=== PATIENT | female | born 1965 | race Caucasian/White ===

== ENCOUNTER → 2018-03-08 | Outpatient (CLI) | payer OTHER ==
[~2018-03-08] MED LIST: DIFLUCAN150 MG PO; EES400 MG PO; LISINOPRIL/HCTZ1 TA3 PO
== END | disposition home or self-care (01) ==
LOC: MAMMO 08:07
DX: Z12.31 Encounter for screening mammogram for malignant neoplasm of breast (principal)

== ENCOUNTER → 2019-10-18 | Outpatient (CLI) | payer OTHER ==
[~2019-10-18] MED LIST changes: +VITAMIN D350 MC1 PO
== END | disposition home or self-care (01) ==
LOC: COVID19 08:02
DX: U07.1 COVID-19 (principal)

== ENCOUNTER 2019-10-23 14:35 | Inpatient (IN) | payer OTHER ==
[~2019-10-23] VITALS: Ht 170.1 cm; Wt 111.3 kg
[2019-10-23 03:32] VITALS: BP 100/61
[~2019-10-23 14:35] MED LIST changes: -VITAMIN D350 MC1 PO
[2019-10-23 14:36] VITALS: BP 92/46; BP 922/46
[2019-10-23 15:06] VITALS: BP 86/0; BP 96/0
[2019-10-23 15:32] LABS: HEMATOCRIT 45.2 % (37.0-47.0); LYMPH # 0.5 10*3/uL (1.3-4.4); LYMPH % 16.6 % (27.0-41.0); MEAN CORPUSCULAR HGB 27.7 pg (27.0-31.0); MEAN PLATELET VOLUME 10.7 fl (9.6-12.3); MONO # 0.2 10*3/uL (0.1-1.0); MONO % 6.9 % (3.0-9.0); NEUT # 2.2 10*3/uL (2.3-7.9); NEUT % 76.2 % (47.0-73.0); PLATELET COUNT AUTOMATED 169 10*3/uL (130-400); RED BLOOD COUNT 5.38 10*6/uL (4.10-5.10); RED CELL DISTRI WIDTH 13.4 % (0-14.5); WHITE BLOOD COUNT 2.9 10*3/uL (4.8-10.8)
[2019-10-23 15:48] LABS: ALBUMIN 3.1 gm/dl (3.1-4.5); ALKALINE PHOSPHATASE 74 U/L (45-117); BUN 18 mg/dl (7-24); CHLORIDE 101 mmol/L (98-107); CREATININE 1.15 mg/dL (0.55-1.02); POTASSIUM 3.9 mmol/L (3.5-5.1); SGOT/AST 53 IU/L (3-35); SGPT/ALT 47 U/L (12-78); SODIUM 135 mmol/L (136-145); TOTAL PROTEIN 7.9 gm/dL (6.4-8.2)
[2019-10-23 18:35] VITALS: BP 92/44
[2019-10-23] MEDS ORDERED: VITAMIN D350 MC1 PO (21:18)
[2019-10-23 21:20] VITALS: BP 111/60
[2019-10-23 22:30] VITALS: BP 112/72
[2019-10-24] VITALS (10 sets, daily range): BP systolic 68–120; BP diastolic 36–71
[2019-10-24 06:52] LABS: INTERNATIONAL NORM RATIO 0.9 (2.0-3.5)
[2019-10-24 06:56] LABS: HEMATOCRIT 40.8 % (37.0-47.0); LYMPH # 0.7 10*3/uL (1.3-4.4); LYMPH % 25.4 % (27.0-41.0); MEAN CELL VOLUME 84.5 fl (81.0-99.0); MEAN CORPUSCULAR HGB 27.7 pg (27.0-31.0); MEAN CORPUSCULAR HGB CONC 32.8 g/dl (33.0-37.0); MEAN PLATELET VOLUME 10.3 fl (9.6-12.3); MONO # 0.2 10*3/uL (0.1-1.0); MONO % 7.7 % (3.0-9.0); NEUT # 1.7 10*3/uL (2.3-7.9); NEUT % 66.5 % (47.0-73.0); PLATELET COUNT AUTOMATED 157 10*3/uL (130-400); RED BLOOD COUNT 4.83 10*6/uL (4.10-5.10); RED CELL DISTRI WIDTH 13.5 % (0-14.5); WHITE BLOOD COUNT 2.6 10*3/uL (4.8-10.8)
[2019-10-24 07:08] LABS: ALBUMIN 2.6 gm/dl (3.1-4.5); BUN 14 mg/dl (7-24); CHLORIDE 105 mmol/L (98-107); CHOLESTEROL 112 mg/dL (<200); CREATININE 0.95 mg/dL (0.55-1.02); HDL CHOLESTEROL 21 mg/dl (40-60); LDL CHOLESTEROL 62 mg/dL (9-159); POTASSIUM 3.7 mmol/L (3.5-5.1); SGOT/AST 46 IU/L (3-35); SGPT/ALT 43 U/L (12-78); SODIUM 137 mmol/L (136-145); TOTAL PROTEIN 6.8 gm/dL (6.4-8.2); TRIGLYCERIDES 144 mg/dl (<150); VLDL CHOLESTEROL 29 mg/dL (6-40)
[2019-10-24 07:14] LABS: ALKALINE PHOSPHATASE 62 U/L (45-117)
[2019-10-24 10:30] LABS: ABG BASE EXCESS 0.4 mmol/L (-2.0-2.0); ARTERIAL BLOOD GAS PH 7.45 (7.35-7.45)
[2019-10-24 11:51] LABS: ACT PARTIAL THROMBO TIME 31.7 SECONDS (20.0-32.1)
[2019-10-24 16:53] LABS: ABG BASE EXCESS 0.8 mmol/L (-2.0-2.0); ARTERIAL BLOOD GAS PH 7.425 (7.35-7.45)
[2019-10-25 04:00] VITALS: BP 103/40
[2019-10-25 06:18] LABS: HEMATOCRIT 42.6 % (37.0-47.0); LYMPH # 0.6 10*3/uL (1.3-4.4); LYMPH % 17.4 % (27.0-41.0); MEAN CORPUSCULAR HGB 27.3 pg (27.0-31.0); MEAN CORPUSCULAR HGB CONC 32.2 g/dl (33.0-37.0); MEAN PLATELET VOLUME 10.9 fl (9.6-12.3); MONO # 0.2 10*3/uL (0.1-1.0); MONO % 7.2 % (3.0-9.0); NEUT # 2.4 10*3/uL (2.3-7.9); NEUT % 75.1 % (47.0-73.0); PLATELET COUNT AUTOMATED 171 10*3/uL (130-400); RED BLOOD COUNT 5.01 10*6/uL (4.10-5.10); RED CELL DISTRI WIDTH 13.2 % (0-14.5); WHITE BLOOD COUNT 3.2 10*3/uL (4.8-10.8)
[2019-10-25 06:30] LABS: ALBUMIN 2.7 gm/dl (3.1-4.5); BUN 16 mg/dl (7-24); CHLORIDE 106 mmol/L (98-107); CREATININE 0.86 mg/dL (0.55-1.02); SGOT/AST 43 IU/L (3-35); SGPT/ALT 45 U/L (12-78); SODIUM 139 mmol/L (136-145)
[2019-10-25 06:32] LABS: ALKALINE PHOSPHATASE 63 U/L (45-117); TOTAL PROTEIN 7.2 gm/dL (6.4-8.2)
[2019-10-25 07:21] LABS: ABG BASE EXCESS 1.7 mmol/L (-2.0-2.0)
[2019-10-25 07:22] LABS: ARTERIAL BLOOD GAS PH 7.442 (7.35-7.45)
[2019-10-25 08:00] VITALS: BP 107/50
[2019-10-25 12:00] VITALS: BP 113/53
[2019-10-25 14:28] LABS: BILIRUBIN NEGATIVE (NEGATIVE); BLOOD NEGATIVE (NEGATIVE); CLARITY CLEAR (CLEAR); COLOR YELLOW (YELLOW); GLUCOSE NEGATIVE (NEGATIVE); KETONE NEGATIVE (NEGATIVE); LEUKO ESTERASE TRACE (NEGATIVE); NITRITE NEGATIVE (NEGATIVE); SPECIFIC GRAVITY 1.025 (1.005-1.030); UROBILINOGEN 0.2 E.U./dl (0.2-1.0)
[2019-10-25 14:29] LABS: BACTERIA 1+; MUCOUS TRACE
[2019-10-25 16:00] VITALS: BP 113/53
[2019-10-25 20:00] VITALS: BP 118/58
[2019-10-25 23:44] VITALS: BP 136/58; BP 136/98
[2019-10-26 04:00] VITALS: BP 130/54
[2019-10-26 06:38] LABS: BASO % 0.2 % (0.0-1.0); LYMPH # 0.9 10*3/uL (1.3-4.4); LYMPH % 18.9 % (27.0-41.0); MEAN CELL VOLUME 86.3 fl (81.0-99.0); MEAN CORPUSCULAR HGB 27.5 pg (27.0-31.0); MEAN CORPUSCULAR HGB CONC 31.9 g/dl (33.0-37.0); MEAN PLATELET VOLUME 10.9 fl (9.6-12.3); MONO # 0.3 10*3/uL (0.1-1.0); MONO % 6.6 % (3.0-9.0); NEUT # 3.6 10*3/uL (2.3-7.9); NEUT % 73.9 % (47.0-73.0); PLATELET COUNT AUTOMATED 222 10*3/uL (130-400); RED BLOOD COUNT 4.98 10*6/uL (4.10-5.10); RED CELL DISTRI WIDTH 13.2 % (0-14.5); WHITE BLOOD COUNT 4.9 10*3/uL (4.8-10.8)
[2019-10-26 06:44] LABS: ALBUMIN 2.9 gm/dl (3.1-4.5); ALKALINE PHOSPHATASE 68 U/L (45-117); BUN 18 mg/dl (7-24); CHLORIDE 108 mmol/L (98-107); CREATININE 0.96 mg/dL (0.55-1.02); LDH 293 U/L (84-246); POTASSIUM 3.8 mmol/L (3.5-5.1); SGOT/AST 45 IU/L (3-35); SGPT/ALT 53 U/L (12-78); SODIUM 141 mmol/L (136-145); TOTAL PROTEIN 7.6 gm/dL (6.4-8.2)
[2019-10-26 08:00] VITALS: BP 128/64
[2019-10-26 08:20] LABS: ABG BASE EXCESS 2.7 mmol/L (-2.0-2.0); ARTERIAL BLOOD GAS PH 7.461 (7.35-7.45)
[2019-10-26 12:00] VITALS: BP 119/55
[2019-10-26 16:00] VITALS: BP 111/56
[2019-10-26 17:51] LABS: ABG BASE EXCESS 1.8 mmol/L (-2.0-2.0); ARTERIAL BLOOD GAS PH 7.453 (7.35-7.45)
[2019-10-26 20:00] VITALS: BP 132/55
[2019-10-27] VITALS: BP 137/76
[2019-10-27 04:00] VITALS: BP 144/68
[2019-10-27 04:42] LABS: ALBUMIN 2.7 gm/dl (3.1-4.5); ALKALINE PHOSPHATASE 66 U/L (45-117); BUN 23 mg/dl (7-24); CHLORIDE 109 mmol/L (98-107); CREATININE 0.86 mg/dL (0.55-1.02); LDH 284 U/L (84-246); POTASSIUM 4.3 mmol/L (3.5-5.1); SGOT/AST 35 IU/L (3-35); SGPT/ALT 56 U/L (12-78); SODIUM 141 mmol/L (136-145); TOTAL PROTEIN 7.2 gm/dL (6.4-8.2)
[2019-10-27 05:07] LABS: HEP B CORE AB, IGM Negative (Negative); HEPATITIS B SURFACE AG Negative (Negative); HEPATITIS C VIRUS ANTIBODY <0.1 s/co (0.0-0.9)
[2019-10-27 06:23] LABS: MEAN CELL VOLUME 86.9 fl (81.0-99.0); MEAN CORPUSCULAR HGB 27.5 pg (27.0-31.0); MEAN CORPUSCULAR HGB CONC 31.7 g/dl (33.0-37.0); MEAN PLATELET VOLUME 10.7 fl (9.6-12.3); PLATELET COUNT AUTOMATED 228 10*3/uL (130-400); RED BLOOD COUNT 4.72 10*6/uL (4.10-5.10); RED CELL DISTRI WIDTH 13.3 % (0-14.5); WHITE BLOOD COUNT 2.8 10*3/uL (4.8-10.8)
[2019-10-27 07:03] LABS: ATYPICAL LYMPHS 1 % (0-0); PLATELET SUFFICIENCY NORMAL (NORMAL); TOTAL CELLS COUNTED 100 #CELLS
[2019-10-27 07:29] LABS: ABG BASE EXCESS 2.3 mmol/L (-2.0-2.0); ARTERIAL BLOOD GAS PH 7.425 (7.35-7.45)
[2019-10-27 08:00] VITALS: BP 128/47
[2019-10-27 12:00] VITALS: BP 119/69
[2019-10-27 15:47] VITALS: BP 108/64
[2019-10-27 20:00] VITALS: BP 121/61
[2019-10-28] VITALS: BP 133/76
[2019-10-28 04:00] VITALS: BP 134/84
[2019-10-28 06:22] LABS: HEMATOCRIT 43.7 % (37.0-47.0); MEAN CELL VOLUME 87.1 fl (81.0-99.0); MEAN CORPUSCULAR HGB 27.5 pg (27.0-31.0); MEAN CORPUSCULAR HGB CONC 31.6 g/dl (33.0-37.0); MEAN PLATELET VOLUME 10.7 fl (9.6-12.3); PLATELET COUNT AUTOMATED 253 10*3/uL (130-400); RED BLOOD COUNT 5.02 10*6/uL (4.10-5.10); RED CELL DISTRI WIDTH 13.3 % (0-14.5); WHITE BLOOD COUNT 3.5 10*3/uL (4.8-10.8)
[2019-10-28 06:44] LABS: ALBUMIN 2.6 gm/dl (3.1-4.5); ALKALINE PHOSPHATASE 60 U/L (45-117); BUN 25 mg/dl (7-24); CHLORIDE 107 mmol/L (98-107); CREATININE 0.97 mg/dL (0.55-1.02); LDH 390 U/L (84-246); SGOT/AST 43 IU/L (3-35); SGPT/ALT 56 U/L (12-78); SODIUM 141 mmol/L (136-145); TOTAL PROTEIN 7.2 gm/dL (6.4-8.2)
[2019-10-28 06:45] LABS: POTASSIUM 4.6 mmol/L (3.5-5.1)
[2019-10-28 07:12] LABS: PLATELET SUFFICIENCY NORMAL (NORMAL); TOTAL CELLS COUNTED 100 #CELLS
[2019-10-28 08:00] VITALS: BP 110/46
[2019-10-28 12:00] VITALS: BP 116/52
[2019-10-28 12:18] LABS: ABG BASE EXCESS 5.5 mmol/L (-2.0-2.0); ARTERIAL BLOOD GAS PH 7.444 (7.35-7.45)
[2019-10-28 16:00] VITALS: BP 113/50
[2019-10-28 20:02] VITALS: BP 108/52
[2019-10-29 00:01] VITALS: BP 109/59
[2019-10-29 04:00] VITALS: BP 100/52
[2019-10-29 06:41] LABS: HEMATOCRIT 42.5 % (37.0-47.0); LYMPH # 1.3 10*3/uL (1.3-4.4); LYMPH % 30.2 % (27.0-41.0); MEAN CORPUSCULAR HGB 27.7 pg (27.0-31.0); MEAN CORPUSCULAR HGB CONC 32.2 g/dl (33.0-37.0); MEAN PLATELET VOLUME 10.2 fl (9.6-12.3); MONO # 0.4 10*3/uL (0.1-1.0); MONO % 9.6 % (3.0-9.0); NEUT # 2.6 10*3/uL (2.3-7.9); NEUT % 59.7 % (47.0-73.0); PLATELET COUNT AUTOMATED 275 10*3/uL (130-400); RED BLOOD COUNT 4.94 10*6/uL (4.10-5.10); RED CELL DISTRI WIDTH 13.1 % (0-14.5); WHITE BLOOD COUNT 4.4 10*3/uL (4.8-10.8)
[2019-10-29 07:01] LABS: ALBUMIN 2.8 gm/dl (3.1-4.5); ALKALINE PHOSPHATASE 60 U/L (45-117); BUN 23 mg/dl (7-24); CHLORIDE 108 mmol/L (98-107); CREATININE 0.96 mg/dL (0.55-1.02); LDH 198 U/L (84-246); POTASSIUM 4.6 mmol/L (3.5-5.1); SGOT/AST 31 IU/L (3-35); SGPT/ALT 60 U/L (12-78); SODIUM 142 mmol/L (136-145)
[2019-10-29 08:00] VITALS: BP 103/38
[2019-10-29 10:22] LABS: ABG BASE EXCESS 3.8 mmol/L (-2.0-2.0); ARTERIAL BLOOD GAS PH 7.451 (7.35-7.45)
[2019-10-29 12:00] VITALS: BP 103/39; BP 118/65
[2019-10-29 16:00] VITALS: BP 104/48
[2019-10-29 20:00] VITALS: BP 110/66
[2019-10-30] VITALS: BP 105/49
[2019-10-30 06:27] LABS: BASO % 0.3 % (0.0-1.0); HEMATOCRIT 41.4 % (37.0-47.0); LYMPH # 1.1 10*3/uL (1.3-4.4); LYMPH % 30.1 % (27.0-41.0); MEAN CELL VOLUME 85.9 fl (81.0-99.0); MEAN CORPUSCULAR HGB 27.6 pg (27.0-31.0); MEAN CORPUSCULAR HGB CONC 32.1 g/dl (33.0-37.0); MEAN PLATELET VOLUME 10.6 fl (9.6-12.3); MONO # 0.4 10*3/uL (0.1-1.0); MONO % 9.7 % (3.0-9.0); NEUT # 2.2 10*3/uL (2.3-7.9); NEUT % 59.4 % (47.0-73.0); PLATELET COUNT AUTOMATED 296 10*3/uL (130-400); RED BLOOD COUNT 4.82 10*6/uL (4.10-5.10); WHITE BLOOD COUNT 3.7 10*3/uL (4.8-10.8)
[2019-10-30 06:42] LABS: ALBUMIN 2.7 gm/dl (3.1-4.5); BUN 22 mg/dl (7-24); CHLORIDE 106 mmol/L (98-107); CREATININE 0.85 mg/dL (0.55-1.02); POTASSIUM 4.1 mmol/L (3.5-5.1); SGOT/AST 25 IU/L (3-35); SGPT/ALT 58 U/L (12-78); SODIUM 141 mmol/L (136-145); TOTAL PROTEIN 6.8 gm/dL (6.4-8.2)
[2019-10-30 06:55] LABS: ALKALINE PHOSPHATASE 63 U/L (45-117); LDH 210 U/L (84-246)
[2019-10-30 08:00] VITALS: BP 110/52; BP 123/71
[2019-10-30 08:26] LABS: ABG BASE EXCESS 4.6 mmol/L (-2.0-2.0); ARTERIAL BLOOD GAS PH 7.465 (7.35-7.45)
[2019-10-30 11:55] LABS: ARTERIAL BLOOD GAS PH 7.482 (7.35-7.45)
[2019-10-30 12:00] VITALS: BP 106/56; BP 126/72
[2019-10-30 16:00] VITALS: BP 105/61
[2019-10-30 20:00] VITALS: BP 112/64
[2019-10-31] VITALS: BP 102/60
[2019-10-31 06:33] LABS: EOS % 0.2 % (1.0-4.0); HEMATOCRIT 42.2 % (37.0-47.0); LYMPH # 1.2 10*3/uL (1.3-4.4); LYMPH % 23.3 % (27.0-41.0); MEAN CELL VOLUME 85.1 fl (81.0-99.0); MEAN CORPUSCULAR HGB 27.4 pg (27.0-31.0); MEAN CORPUSCULAR HGB CONC 32.2 g/dl (33.0-37.0); MEAN PLATELET VOLUME 10.6 fl (9.6-12.3); MONO # 0.4 10*3/uL (0.1-1.0); MONO % 8.6 % (3.0-9.0); NEUT # 3.4 10*3/uL (2.3-7.9); NEUT % 67.1 % (47.0-73.0); PLATELET COUNT AUTOMATED 316 10*3/uL (130-400); RED BLOOD COUNT 4.96 10*6/uL (4.10-5.10); RED CELL DISTRI WIDTH 13.1 % (0-14.5); WHITE BLOOD COUNT 5.1 10*3/uL (4.8-10.8)
[2019-10-31 07:04] LABS: ALBUMIN 2.7 gm/dl (3.1-4.5); ALKALINE PHOSPHATASE 67 U/L (45-117); BUN 23 mg/dl (7-24); CHLORIDE 106 mmol/L (98-107); CREATININE 0.94 mg/dL (0.55-1.02); LDH 212 U/L (84-246); POTASSIUM 4.4 mmol/L (3.5-5.1); SGOT/AST 21 IU/L (3-35); SGPT/ALT 54 U/L (12-78); SODIUM 140 mmol/L (136-145); TOTAL PROTEIN 6.7 gm/dL (6.4-8.2)
[2019-10-31 08:00] VITALS: BP 92/45
[2019-10-31 09:10] LABS: TB1 Ag VALUE 0.04 IU/mL (.)
[2019-10-31 12:00] VITALS: BP 134/72
[2019-10-31] MEDS ORDERED: DECADRON6 M1 PO (13:26)
[2019-10-31 16:00] VITALS: BP 100/50
== END 2019-10-31 16:46 | disposition home or self-care (01) | DRG 137 ==
LOC: ED 14:35 → 4E 19:28 → EDHOLD 19:28 → 4E 20:11
PROVIDERS: Emergency Medicine; Internal Medicine; Internal Medicine Critical Care Medicine; Student in an Organized Health Care Education/Training Program; ADMIT Family Medicine
PROC: 5A09357 Assistance with Respiratory Ventilation, Less than 24 Consecutive Hours, Continuous Positive Airway Pressure (ICD-10-PCS; principal; 2019-10-26)
PROC: 5A09357 Assistance with Respiratory Ventilation, Less than 24 Consecutive Hours, Continuous Positive Airway Pressure (ICD-10-PCS; 2019-10-27)
PROC: 5A09357 Assistance with Respiratory Ventilation, Less than 24 Consecutive Hours, Continuous Positive Airway Pressure (ICD-10-PCS; 2019-10-28)
PROC: 5A09357 Assistance with Respiratory Ventilation, Less than 24 Consecutive Hours, Continuous Positive Airway Pressure (ICD-10-PCS; 2019-10-29)
PROC: 5A09357 Assistance with Respiratory Ventilation, Less than 24 Consecutive Hours, Continuous Positive Airway Pressure (ICD-10-PCS; 2019-10-30)
PROC: 5A09357 Assistance with Respiratory Ventilation, Less than 24 Consecutive Hours, Continuous Positive Airway Pressure (ICD-10-PCS; 2019-10-31)
DX: U07.1 COVID-19 (principal); N17.0 Acute kidney failure with tubular necrosis; J96.01 Acute respiratory failure with hypoxia; E43 Unspecified severe protein-calorie malnutrition; E87.1 Hypo-osmolality and hyponatremia; D68.59 Other primary thrombophilia; J12.89 Other viral pneumonia; E83.41 Hypermagnesemia; I95.9 Hypotension, unspecified; D72.819 Decreased white blood cell count, unspecified; R79.89 Other specified abnormal findings of blood chemistry; E66.01 Morbid (severe) obesity due to excess calories; E11.65 Type 2 diabetes mellitus with hyperglycemia; Z79.4 Long term (current) use of insulin; Z68.42 Body mass index [BMI] 45.0-49.9, adult; Z88.0 Allergy status to penicillin; Z79.01 Long term (current) use of anticoagulants

== ENCOUNTER → 2019-11-20 | Outpatient (CLI) | payer OTHER ==
[~2019-11-20] MED LIST changes: +DECADRON6 M1 PO; +VITAMIN D350 MC1 PO
== END | disposition home or self-care (01) ==
LOC: COVID19 05:15
DX: U07.1 COVID-19 (principal)

== ENCOUNTER → 2020-08-18 | Outpatient (CLI) | payer OTHER | END | disposition home or self-care (01) | LOC: MAMMO 10:48 | PROVIDERS: ATTEND Family Medicine | DX: Z12.31 Encounter for screening mammogram for malignant neoplasm of breast (principal) ==

== ENCOUNTER → 2021-02-06 | Outpatient (CLI) | payer OTHER ==
[2021-02-06 15:02] LABS: BASO % 0.5 % (0.0-1.0); EOS # 0.1 10*3/uL (0.0-0.4); EOS % 1.4 % (1.0-4.0); HEMATOCRIT 42.8 % (37.0-47.0); LYMPH # 1.5 10*3/uL (1.3-4.4); LYMPH % 26.6 % (27.0-41.0); MEAN CELL VOLUME 86.5 fl (81.0-99.0); MEAN CORPUSCULAR HGB 28.3 pg (27.0-31.0); MEAN CORPUSCULAR HGB CONC 32.7 g/dl (33.0-37.0); MEAN PLATELET VOLUME 10.2 fl (9.6-12.3); MONO # 0.4 10*3/uL (0.1-1.0); MONO % 6.4 % (3.0-9.0); NEUT # 3.6 10*3/uL (2.3-7.9); NEUT % 64.9 % (47.0-73.0); PLATELET COUNT AUTOMATED 248 10*3/uL (130-400); RED BLOOD COUNT 4.95 10*6/uL (4.10-5.10); RED CELL DISTRI WIDTH 13.1 % (0-14.5); WHITE BLOOD COUNT 5.6 10*3/uL (4.8-10.8)
[2021-02-06 15:05] LABS: BILIRUBIN Negative (Negative); BLOOD Trace-Lysed (Negative); CLARITY Clear (Clear); COLOR Yellow (Yellow); GLUCOSE Negative (Negative); KETONE Trace (Negative); LEUKO ESTERASE Trace (Negative); NITRITE Negative (Negative); SPECIFIC GRAVITY 1.025 (1.001-1.030)
[2021-02-06 15:31] LABS: BACTERIA 1+; MUCOUS 1+
[2021-02-06 15:47] LABS: ALBUMIN 3.2 gm/dl (3.1-4.5); ALKALINE PHOSPHATASE 79 U/L (45-117); BUN 13 mg/dl (7-24); CHLORIDE 109 mmol/L (98-107); CREATININE 0.86 mg/dL (0.55-1.02); POTASSIUM 4.2 mmol/L (3.5-5.1); SGOT/AST 22 IU/L (3-35); SGPT/ALT 36 U/L (12-78); SODIUM 140 mmol/L (136-145); TOTAL PROTEIN 7.2 gm/dL (6.4-8.2)
[2021-02-07 10:07] LABS: CREATININE,URINE 180.3 mg/dL (Not Estab.)
== END | disposition home or self-care (01) ==
LOC: US 14:00
PROVIDERS: ATTEND Internal Medicine Nephrology
DX: R31.9 Hematuria, unspecified (principal)

== ENCOUNTER → 2021-03-11 | Outpatient (CLI) | payer OTHER ==
[2021-03-11 09:25] LABS: BASO % 0.5 % (0.0-1.0); EOS # 0.1 10*3/uL (0.0-0.4); EOS % 2.4 % (1.0-4.0); LYMPH % 33.7 % (27.0-41.0); MEAN CELL VOLUME 88.1 fl (81.0-99.0); MEAN CORPUSCULAR HGB 28.4 pg (27.0-31.0); MEAN CORPUSCULAR HGB CONC 32.2 g/dl (33.0-37.0); MEAN PLATELET VOLUME 10.8 fl (9.6-12.3); MONO # 0.4 10*3/uL (0.1-1.0); MONO % 6.6 % (3.0-9.0); NEUT # 3.4 10*3/uL (2.3-7.9); NEUT % 56.6 % (47.0-73.0); PLATELET COUNT AUTOMATED 241 10*3/uL (130-400); RED BLOOD COUNT 5.11 10*6/uL (4.10-5.10); RED CELL DISTRI WIDTH 13.2 % (0-14.5); WHITE BLOOD COUNT 5.9 10*3/uL (4.8-10.8)
[2021-03-11 09:27] LABS: BILIRUBIN Negative (Negative); BLOOD Trace-Intact (Negative); CLARITY Cloudy (Clear); COLOR Yellow (Yellow); GLUCOSE Negative (Negative); KETONE Negative (Negative); LEUKO ESTERASE Trace (Negative); NITRITE Negative (Negative)
[2021-03-11 09:46] LABS: ALBUMIN 3.2 gm/dl (3.1-4.5); ALKALINE PHOSPHATASE 76 U/L (45-117); BUN 16 mg/dl (7-24); CHLORIDE 103 mmol/L (98-107); CREATININE 0.92 mg/dL (0.55-1.02); SGOT/AST 20 IU/L (3-35); SGPT/ALT 37 U/L (12-78); SODIUM 140 mmol/L (136-145); TOTAL PROTEIN 7.2 gm/dL (6.4-8.2)
[2021-03-11 09:50] LABS: BACTERIA 1+
== END | disposition home or self-care (01) ==
LOC: CT 08:32 → LAB 08:32 → CT 09:00
PROVIDERS: ATTEND Urology
DX: R31.9 Hematuria, unspecified (principal); N85.2 Hypertrophy of uterus

== ENCOUNTER → 2022-04-05 | Outpatient (CLI) | payer OTHER | END | disposition home or self-care (01) | LOC: MAMMO 14:00 | PROVIDERS: ATTEND Family Medicine | DX: Z12.31 Encounter for screening mammogram for malignant neoplasm of breast (principal); N64.9 Disorder of breast, unspecified ==

== ENCOUNTER → 2022-05-17 | Outpatient (CLI) | payer OTHER | END | disposition home or self-care (01) | LOC: US 00:50 | PROVIDERS: ATTEND Internal Medicine Nephrology | DX: R22.1 Localized swelling, mass and lump, neck (principal) ==

== ENCOUNTER → 2023-12-12 | Outpatient (CLI) | payer OTHER | END | disposition home or self-care (01) | LOC: US 08:30 | PROVIDERS: ATTEND Internal Medicine Nephrology | DX: Z12.31 Encounter for screening mammogram for malignant neoplasm of breast (principal); N39.46 Mixed incontinence ==